=== PATIENT | male | born 1980 | race Caucasian/White ===

== ENCOUNTER 2016-10-24 21:07 | Emergency (ER) | payer OTHER ==
--- NOTE | ~2016-10-24 | EKG ---
PATIENT: NAUN CHUA UNIT #: [id number] Ventricular Rate: 79 BPM Atrial Rate: 79 BPM P-R Interval: 156 ms QRS Duration: 88 ms Q-T Interval: 360 ms QTC Calculation(Bezet): 412 ms P [place]: 65 degrees Calculated R [place]: 42 degrees Calculated T [place]: 69 degrees Diagnosis Line: Normal sinus rhythm Diagnosis Line: Normal ECG Diagnosis Line: When compared with ECG of 05-APR-2015 10:13, Diagnosis Line: No significant change was found Diagnosis Line: Confirmed by NOEMÍ IRIZARRY MD ([id number]) on 10/26/2016 Diagnosis Line: 12:02:43 PM INTERPRETING MD: JUAN C MATHIS
--- NOTE | ~2016-10-24 | CT16 ---
[facility] A Service of [facility] RADIOLOGY TEXT RESULTS PATIENT: NAUN CHUA LOCATION: SED : 82 UNIT #: [id number] AGE: [address]: Guzman Nation MD SEX: M ORDER DR: [id number] [place] [id number] E MR#: [id number] Acc #: [id number] NAME: NUAN CHUA. : 1980 SEX: M STUDY DATE/TIME: 10/24/2016 22:06 UNIT: SED ROOM: STUDY DESCRIPTION: CT Angio Chest for PE Attending Physician: Guzman Nation M.D. Ordering Physician: Guzman Nation M.D. Primary Care Physician: Johan Nina M.D. MEDICAL IMAGING REPORT This report is preliminary unless electronic signature is present. EXAM CT chest with contrast, pulmonary arteriography protocol, 10/24/2016 HISTORY A 36-year-old male in the ED complaining of left upper chest pain and shoulder pain. Symptoms for about 3 days. He has a past history of documented pulmonary embolism, May 2014. TECHNIQUE This CT exam was performed with one or more of the following radiation dose reduction techniques: automatic exposure control, adjustment of mA and/or kV according to patient size, and iterative reconstruction. CT examination of the chest with IV contrast using pulmonary arteriography protocol. 3-D CTA images of the pulmonary arteries were reformatted in multiple planes. FINDINGS No pulmonary embolism is demonstrated today. Thoracic aorta is normal in caliber with no aneurysm or dissection. Heart size is normal, there is no pericardial effusion. The lungs are expanded and clear. There is no pleural effusion. No mass or adenopathy is seen within the mediastinum or pulmonary sandra. No rib fracture or other chest wall abnormality is identified. Limited upper abdominal images are within normal limits. IMPRESSION Negative chest CT examination using pulmonary arteriography protocol. [facility] A Service of [facility] RADIOLOGY TEXT RESULTS PATIENT: NAUN CHUA LOCATION: SED : 82 UNIT #: [id number] AGE: [address]: Guzman Nation MD SEX: M ORDER DR: Dictated by... Francisco Do M.D. THIS IS AN ELECTRONICALLY VERIFIED REPORT Francisco Do M.D. at 10/25/2016 5:59 AM NILSA/selina TD: 10/24/2016 23:49 JOB #: [id number] MEDICAL IMAGING REPORT Page 1 of 1
[~2016-10-24 21:07] MED LIST: DULCOLAX10 MG/SUPP PR; ELIQUIS5 MG PO; FLEXERIL10 MG PO; MORPHINE IR PO; MS CONTIN30 MG PO; NICOTINE TRANSDE7 MG EXT; NO MEDICATIONS; PHENERGAN25 M1 PO; PROTONIX20 MG PO; SENNA-S TABLET1 EAC1 PO; XARELTO10 MG PO; ZOFRAN ODT4 MG/UDTAB PO
[2016-10-24 21:20] LABS: BASOPHIL% 0.4 % (0-2.5); DIFF IND NO; EOSINOPHIL# 0.2 X10e3 (0-0.7); EOSINOPHIL% 1.7 % (0.0-7.0); HEMATOCRIT 46.7 % (38.0-50.0); HEMOGLOBIN 15.6 gm/dL (13.0-16.0); LYMPHOCYTE% 20.7 % (17.0-45.0); MEAN CELL VOLUME 88.7 FL (83-96); MEAN CORPUSCULAR HEMOGLOBIN 29.6 PG (28-34); MEAN CORPUSCULAR HGB CONC 33.4 g/dL (30-36); MEAN PLATELET VOLUME 8.6 FL (6.5-11.5); MONOCYTE# 0.6 X10e3 (0-1.0); MONOCYTE% 5.9 % (3.0-12.0); NEUTROPHIL# 6.9 X10e3 (1.5-7.1); NEUTROPHIL% 71.3 % (40-75); PLATELET COUNT 190 X10e3 (140-420); RED BLOOD COUNT 5.26 X10e (3.90-5.60); WHITE BLOOD COUNT 9.7 X10e3 (4.0-10.5)
[2016-10-24 21:26] LABS: PROTHROMBIN TIME (PATIENT) 11.8 SECONDS (9.5-12.4)
[2016-10-24 21:33] LABS: PARTIAL THROMBOPLASTIN TIME 32.5 SECONDS (25.6-38.1)
[2016-10-24 21:34] LABS: BUN/CREATININE RATIO 10.9; CALCIUM SERUM 9.3 mg/dL (8.4-10.2); CREATININE SERUM 1.1 mg/dL (0.6-1.4); GLOM FILT RATE Estimated 86.5 mL/min (>60)
[2016-10-24 21:39] LABS: POC - CKMB <1.0 ng/mL (0.0-7.9); POC - TROPONIN <0.05 ng/mL (<=0.05)
== END 2016-10-24 23:25 | disposition home or self-care (01) ==
LOC: SED 21:07
PROVIDERS: Emergency Medicine
DX: M54.12 Radiculopathy, cervical region (principal); R25.2 Cramp and spasm; R07.89 Other chest pain; F17.200 Nicotine dependence, unspecified, uncomplicated
CPT/HCPCS: 36415; 71275; 80048; 82553; 84484; 85025; 85610; 85730; 93005; 96374; 96375; 99284; J2270; J2405; Q9967